=== PATIENT | female | born 1980 | race Two or more races ===

== ENCOUNTER 2022-12-25 09:45 | Emergency (ER) | payer MEDICAID ==
[~2022-12-25] VITALS: Ht 162.6 cm; Wt 72.7 kg
[2022-12-25 12:51] VITALS: BP 141/73
== END 2022-12-25 13:01 | disposition home or self-care (01) ==
LOC: EMS 09:47
DX: S70.02XA Contusion of left hip, initial encounter (principal); S09.90XA Unspecified injury of head, initial encounter; S50.02XA Contusion of left elbow, initial encounter; Z98.890 Other specified postprocedural states; W19.XXXA Unspecified fall, initial encounter; Y93.01 Activity, walking, marching and hiking; Y92.89 Other specified places as the place of occurrence of the external cause; Y99.8 Other external cause status
CPT/HCPCS: 70450; 72125; 73503; 99284